=== PATIENT | female | born 1965 | race Caucasian/White ===

== ENCOUNTER → 2016-12-09 | Outpatient (CLI) | payer BC ==
[~2016-12-09] MED LIST: AZIT250T PO; HYCT PO; LEVO88TA PO; ONDA4TAB10 SL; OXYC-57 PO; TAMS0.4C38 PO
== END | disposition home or self-care (01) ==
LOC: C.PAPS 08:12
PROVIDERS: ATTEND Obstetrics & Gynecology
DX: Z01.419 Encounter for gynecological examination (general) (routine) without abnormal findings (principal)

== ENCOUNTER 2017-02-23 12:10 | Emergency (ER) | payer BC ==
[~2017-02-23] VITALS: Ht 149.9 cm; Wt 52.4 kg
[~2017-02-23 12:10] MED LIST changes: -LEVO88TA PO; -ONDA4TAB10 SL; -OXYC-57 PO; -TAMS0.4C38 PO
[2017-02-23 12:17] VITALS: TEMP 36.4; Ht 149.9 cm; Wt 52.4 kg
[2017-02-23] MEDS ORDERED: HYDROmorphone INJ 0.5 MG/0.5 ML SYR IV STA (12:32)
[2017-02-23] MEDS ORDERED: KETOROLAC TROMETHAMINE 30 MG/ML VIAL IV STA (12:32)
[2017-02-23] MEDS ORDERED: ONDANSETRON INJ 2 MG/ML 2 ML VIAL IV STA (12:32)
[2017-02-23] MEDS ORDERED: SODIUM CHLORIDE 0.9% 1000ML 1,000 ML IV STA (12:32)
--- NOTE | 2017-02-23 12:40 | EMERGENCY ROOM VISIT NOTE ---
History Report prepared by Zeenat: Gina Livingston Under the Supervision of: Dr. Ivan Redding M.D. First contact with patient: 12:23 Chief Complaint: FLANK PAIN Stated Complaint: PAIN IN RIGHT BACK, LIGHTHEADED, TINGLING HANDS History of Present Illness The patient is a 52 year old female who presents to the Emergency Room with complaints of waxing and waning right flank pain that began thirty minutes prior to arrival. She currently rates her discomfort as an 8/10 in severity and describes her discomfort as a pressure. The patient states that her pain started suddenly and denies doing any heavy lifting when her pain began. She states that due to the pain she became lightheaded and "trembly in the legs" so she rested in bed for a few minutes. The patient denies the pain radiating to her abdomen and denies ever having pain like this in the past. She notes a family history of kidney stones, but denies any personal history of kidney stones. The patient denies any history of a cholecystectomy or appendectomy. Source of History: patient Onset: 30 minutes prior to arrival Position: other (right flank) Symptom Intensity: 8/10 Quality: pressure Timing: waxes/wanes Note: Associated Symptoms: lightheaded, trembly in the legs Review of Systems See HPI for pertinent positives & negatives. A total of 10 systems reviewed and were otherwise negative. Past Medical & Surgical Medical Problems: (1) Pneumonia Family History Cancer Diabetes mellitus Heart disease Hypertension Kidney disease Kidney stones Social History Smoking Status: Never Smoker Smokeless Tobacco Use: No Alcohol Use: none Marital Status: Housing Status: lives with family Occupation Status: employed Current/Historical Medications Scheduled Levothyroxine Sodium (Synthroid), 88 MCG PO QPM Ondasetron Odt (Zofran Odt), 4 MG SL Q6H Tamsulosin Hcl (Flomax), 0.4 MG PO DAILY Scheduled PRN Oxycodone/Acetaminophen 5MG/325MG (Percocet 5MG/325MG), 1-2 TAB PO Q4H PRN for Pain Allergies Coded Allergies: Penicillins (Verified Allergy, Unknown, 02/23/17) Uncoded Allergies: CORN WHEAT ONION (Allergy, Unknown, 01/05/03) VOMITING DUE TO MEDS GIVEN WITH WISDOM TEETH EXTRACTION (Allergy, Unknown, 2/13/03) Physical Exam Vital Signs Date Time Temp Pulse Resp B/P Pulse Ox O2 Delivery O2 Flow Rate FiO2 02/23/17 14:13 78 16 109/69 100 02/23/17 13:37 78 16 109/69 100 Room Air 02/23/17 12:17 36.4 80 18 126/103 100 Room Air Physical Exam GENERAL: Patient is a healthy-appearing well-nourished HEAD: Normocephalic atraumatic EYES: Ocular movements intact pupils equal and react to light OROPHARYNX mucous membranes are moist no exudates present no erythema or edema present NECK: Supple no nuchal rigidity CHEST: Good equal expansion LUNGS: Clear and equal to auscultation CARDIAC: Normal S1 and S2 ABDOMEN: Soft nontender no guarding BACK: No CVA tenderness EXTREMITIES: No pain upon palpation normal muscle strength in all groups no clubbing cyanosis or edema NEURO: Patient is following commands is answering questions appropriately. Alert and oriented x3 Cranial Nerves 2-12 grossly intact Medical Decision & Procedures ER Provider Diagnostic Interpretation: CT results as stated below per my review and radiologist interpretation: ABDOMEN AND PELVIS CT WITHOUT CONTRAST CT DOSE: 514.83 mGy.cm HISTORY: Pain Pt c/o Rt sided flank pain TECHNIQUE: Multiaxial CT images of the abdomen and pelvis were performed without the use of intravenous and oral contrast according to the standard department stone protocol. COMPARISON STUDY: None. FINDINGS: The lung bases are clear. The unenhanced liver, gallbladder, spleen, pancreas, and adrenal glands are unremarkable. 3 mm obstructing calculus proximal right ureter. Mild right renal hydronephrosis. Left kidney is negative for hydronephrosis or calculus. Bowel pattern throughout is nonobstructive. There is a 2.5 cm left ovarian cyst. There is a 1 cm right ovarian cyst. Uterus is somewhat bulky suggesting the possibility of fibroid involvement. It is anteflexed in configuration. Bladder is midline. IMPRESSION: 1. 3 mm obstructing calculus proximal right ureter. 2. Mild right renal hydronephrosis. 3. Small bilateral ovarian cysts. 4. Fibroid-type uterus Electronically signed by: Aneesh Fermin M.D. 02/23/2017 1:10 PM Dictated Date/Time: 02/23/2017 1:06 PM Laboratory Results 02/23/17 12:43 Red Blood Count 4.57, Mean Corpuscular Volume 85.3, Mean Corpuscular Hemoglobin 29.5, Mean Corpuscular Hemoglobin Concent 34.6, Mean Platelet Volume 9.6, Neutrophils (%) (Auto) 55.9, Lymphocytes (%) (Auto) 31.7, Monocytes (%) (Auto) 8.2, Eosinophils (%) (Auto) 3.2, Basophils (%) (Auto) 0.7, Neutrophils # (Auto) 4.08, Lymphocytes # (Auto) 2.31, Monocytes # (Auto) 0.60, Eosinophils # (Auto) 0.23, Basophils # (Auto) 0.05 02/23/17 12:43 Test 02/23/17 11:25 02/23/17 12:43 Urine Color YELLOW Urine Appearance CLOUDY (CLEAR) Urine pH 6.5 (4.5-7.5) Urine Specific Mingus 1.017 (1.000-1.030) Urine Protein NEG (NEG) Urine Glucose (UA) NEG (NEG) Urine Ketones TRACE (NEG) Urine Occult Blood 3+ (NEG) Urine Nitrite NEG (NEG) Urine Bilirubin NEG (NEG) Urine Urobilinogen NEG (NEG) Urine Leukocyte Esterase MODERATE (NEG) Urine WBC (Auto) 1-5 /hpf (0-5) Urine RBC (Auto) >30 /hpf (0-4) Urine Hyaline Casts (Auto) 1-5 /lpf (0-5) Urine Epithelial Cells (Auto) >30 /lpf (0-5) Urine Bacteria (Auto) NEG (NEG) Urine Renal Epithelial Cells /lpf (0-5) White Blood Count 7.29 K/uL (4.8-10.8) Red Blood Count 4.57 M/uL (4.2-5.4) Hemoglobin 13.5 g/dL (12.0-16.0) Hematocrit 39.0 % (37-47) Mean Corpuscular Volume 85.3 fL (80-100) Mean Corpuscular Hemoglobin 29.5 pg (25-34) Mean Corpuscular Hemoglobin Concent 34.6 g/dl (32-36) Platelet Count 384 K/uL (130-400) Mean Platelet Volume 9.6 fL (7.4-10.4) Neutrophils (%) (Auto) 55.9 % Lymphocytes (%) (Auto) 31.7 % Monocytes (%) (Auto) 8.2 % Eosinophils (%) (Auto) 3.2 % Basophils (%) (Auto) 0.7 % Neutrophils # (Auto) 4.08 K/uL (1.4-6.5) Lymphocytes # (Auto) 2.31 K/uL (1.2-3.4) Monocytes # (Auto) 0.60 K/uL (0.11-0.59) Eosinophils # (Auto) 0.23 K/uL (0-0.5) Basophils # (Auto) 0.05 K/uL (0-0.2) RDW Standard Deviation 46.6 fL (36.4-46.3) RDW Coefficient of Variation 14.8 % (11.5-14.5) Immature Granulocyte % (Auto) 0.3 % Immature Granulocyte # (Auto) 0.02 K/uL (0.00-0.02) Anion Gap 16.0 mmol/L (3-11) Est Creatinine Clear Calc Drug Dose 58.7 ml/min Estimated GFR () 94.0 Estimated GFR (Non- 81.1 BUN/Creatinine Ratio 14.0 (10-20) Calcium Level 9.5 mg/dl (8.5-10.1) Total Bilirubin 1.0 mg/dl (0.2-1) Direct Bilirubin 0.2 mg/dl (0-0.2) Aspartate Amino Transf (AST/SGOT) 16 U/L (15-37) Alanine Aminotransferase (ALT/SGPT) 33 U/L (12-78) Alkaline Phosphatase 85 U/L (45-117) Total Protein 7.0 gm/dl (6.4-8.2) Albumin 3.9 gm/dl (3.4-5.0) Lipase 266 U/L (73-393) Labs reviewed by ED physician. Medications Administered Medications (Trade) Dose Ordered Sig/Lucia Route Start Time Stop Time Status Last Admin Dose Admin Sodium Chloride (Nss 1000ml) 1,000 ml @ 999 mls/hr Q1H1M STAT IV 02/23/17 12:32 02/23/17 13:32 DC 02/23/17 13:09 999 MLS/HR Ketorolac Tromethamine (Toradol Inj) 30 mg NOW STAT IV 02/23/17 12:32 02/23/17 12:35 DC 02/23/17 13:09 30 MG Hydromorphone HCl (Dilaudid Inj) 0.5 mg NOW STAT IV 02/23/17 12:32 02/23/17 12:35 DC 02/23/17 13:10 0.5 MG Ondansetron HCl (Zofran Inj) 4 mg NOW STAT IV 02/23/17 12:32 02/23/17 12:35 DC 02/23/17 13:09 4 MG Tamsulosin HCl (Flomax Cap) 0.4 mg NOW STAT PO 02/23/17 13:15 02/23/17 13:16 DC 02/23/17 13:37 0.4 MG ED Course 1229: Past medical records reviewed. The patient was evaluated in room C8. A complete history and physical examination was performed. 1232: Ordered Zofran Inj 4 mg IV, Dilaudid Inj 0.5 mg IV, Toradol Inj 30 mg IV, Sodium Chloride 1000 ml @ 999 mls/hr IV. 1315: Ordered Flomax Cap 0.4 mg PO. 1406: I reevaluated the patient and she is resting comfortably. I discussed the exam findings with her and I discussed the treatment plan. She verbalized complete understanding and agreement. She is ready to go home. Medical Decision Differential diagnosis: Etiologies such as appendicitis, diverticulitis, PUD, biliary pathology, UTI, pancreatitis, obstruction, mesenteric ischemia, aortic pathology, infections, inflammatory bowel disease, renal colic, as well as others were entertained. This is a 52-year-old female who presents emergency department complaining of right-sided flank pain. The patient has a stone on CAT scan which would explain her symptoms. An IV was established, the patient given normal saline bolus, Toradol, Dilaudid. Repeat examination revealed improvement patient's symptoms. The patient does not have a fever this has no evidence of infection in her urine. Based on these findings and believe that the patient can be safely discharged home. Patient and were in agreement with treatment plan. The patient was started on Flomax and told to take ibuprofen as well as Percocet for follow-up with urology. Patient was in agreement with the treatment plan. Impression Primary Impression: Kidney stone Additional Impression: Flank pain Scribe Attestation The scribe's documentation has been prepared under my direction and personally reviewed by me in its entirety. I confirm that the note above accurately reflects all work, treatment, procedures, and medical decision making performed by me. Departure Information Dispostion Home / Self-Care Prescriptions Tamsulosin Hcl (FLOMAX) 0.4 Mg Cap 0.4 MG PO DAILY for 10 Days, #10 CAP Prov: Ivan Redding MD 02/23/17 Oxycodone/Acetaminophen 5MG/325MG (PERCOCET 5MG/325MG) Tab 1-2 TAB PO Q4H Y for Pain, #14 TAB Prov: Ivan Redding MD 02/23/17 Ondasetron Odt (ZOFRAN ODT) 4 Mg Tab 4 MG SL Q6H for Nausea, #6 TAB Prov: Ivan Redding MD 02/23/17 Referrals No Doctor, Assigned (PCP) Dennis Joe M.D. Yingling, Christopher T. M.D. Forms HOME CARE DOCUMENTATION FORM, IMPORTANT VISIT INFORMATION, School Instructions, Work Instructions Patient Instructions Kidney Stones Expectant Therapy, Kidney Stones Prevent, Kidney Stones Risk, My [facility] Additional Instructions You received narcotic or benzodiazepene medication while in the emergency room today. Do not drive, operate heavy machinery, or drink alcohol under the influence of this medication. Take 600 mg Ibuprofen every 6 hours Take Percocet for breakthrough pain Culture results are usually available in approx 48 hours You have been examined and treated today on an emergency basis only. This is not a substitute for, or an effort to provide, complete comprehensive medical care. It is impossible to recognize and treat all injuries or illnesses in a single emergency department visit. It is therefore important that you follow up closely with Dr Joe. Call as soon as possible for an appointment. Thank you for your time and consideration. I look forward to speaking with you again soon. Please don't hesitate to call us if you have any questions. Problem Qualifiers
[2017-02-23 12:47] LABS: URINE APPEARANCE CLOUDY (CLEAR); URINE BILIRUBIN NEG (NEG); URINE COLOR YELLOW; URINE EPITHELIAL CELL AUTO >30 /lpf (0-5); URINE NITRITE NEG (NEG); URINE PH 6.5 (4.5-7.5); URINE SPECIFIC GRAVITY 1.017 (1.000-1.030); UROBILINOGEN NEG (NEG)
[2017-02-23 12:55] LABS: MANUAL MICROSCOPIC REQUIRED? NO
[2017-02-23 12:56] LABS: REVIEW REQ? YES
[2017-02-23 12:57] LABS: BASO % 0.7 %; BASO ABS # 0.05 K/uL (0-0.2); COMPLETE YES; EOS % 3.2 %; IG% 0.3 %; LYMPH % 31.7 %; LYMPH ABS # 2.31 K/uL (1.2-3.4); MEAN CELL VOLUME 85.3 fL (80-100); MEAN CORPUSCULAR HEMOGLOBIN 29.5 pg (25-34); MEAN CORPUSCULAR HGB CONC 34.6 g/dl (32-36); MEAN PLATELET VOLUME 9.6 fL (7.4-10.4); MONO % 8.2 %; NEUT % 55.9 %; PLATELET COUNT 384 K/uL (130-400); RED BLOOD COUNT 4.57 M/uL (4.2-5.4); WHITE BLOOD COUNT 7.29 K/uL (4.8-10.8)
[2017-02-23] MEDS ORDERED: LEVO88TA PO (13:06)
--- NOTE | 2017-02-23 13:11 | DIAGNOSTIC IMAGING REPORT ---
ABDOMEN AND PELVIS CT WITHOUT CONTRAST CT DOSE: 514.83 mGy.cm HISTORY: Pain Pt c/o Rt sided flank pain TECHNIQUE: Multiaxial CT images of the abdomen and pelvis were performed without the use of intravenous and oral contrast according to the standard department stone protocol. COMPARISON STUDY: None. FINDINGS: The lung bases are clear. The unenhanced liver, gallbladder, spleen, pancreas, and adrenal glands are unremarkable. 3 mm obstructing calculus proximal right ureter. Mild right renal hydronephrosis. Left kidney is negative for hydronephrosis or calculus. Bowel pattern throughout is nonobstructive. There is a 2.5 cm left ovarian cyst. There is a 1 cm right ovarian cyst. Uterus is somewhat bulky suggesting the possibility of fibroid involvement. It is anteflexed in configuration. Bladder is midline. IMPRESSION: 1. 3 mm obstructing calculus proximal right ureter. 2. Mild right renal hydronephrosis. 3. Small bilateral ovarian cysts. 4. Fibroid-type uterus Electronically signed by: Aneesh Fermin M.D. 02/23/2017 1:10 PM Dictated Date/Time: 02/23/2017 1:06 PM
[2017-02-23] MEDS ORDERED: TAMSULOSIN HCL 0.4 MG CAP PO STA (13:15)
[2017-02-23 13:20] LABS: CALCIUM 9.5 mg/dl (8.5-10.1); CREATININE 0.83 mg/dl (0.60-1.20); POTASSIUM 3.2 mmol/L (3.5-5.1)
[2017-02-23] MEDS ORDERED: TAMS0.4C38 PO (13:22)
[2017-02-23] MEDS ORDERED: OXYC-57 PO (13:22)
[2017-02-23] MEDS ORDERED: ONDA4TAB10 SL (13:22)
[2017-02-23 14:13] VITALS: BP 109/69; PULSE 78; O2SAT 100
== END 2017-02-23 14:13 | disposition home or self-care (01) ==
LOC: C.EDB 12:13 → C.EDC 14:13
DX: N20.0 Calculus of kidney (principal); R10.30 Lower abdominal pain, unspecified; Z79.899 Other long term (current) drug therapy; Z88.0 Allergy status to penicillin; Z80.9 Family history of malignant neoplasm, unspecified; Z83.3 Family history of diabetes mellitus; Z82.49 Family history of ischemic heart disease and other diseases of the circulatory system; Z84.1 Family history of disorders of kidney and ureter

== ENCOUNTER → 2017-04-09 | Outpatient (CLI) | payer BC ==
[~2017-04-09] MED LIST changes: -AZIT250T PO; -HYCT PO; +LEVO88TA PO; +ONDA4TAB10 SL; +OXYC-57 PO
--- NOTE | 2017-04-14 11:16 | MAMMOGRAPHY REPORT ---
UNILATERAL LEFT DIGITAL DIAGNOSTIC MAMMOGRAM TOMOSYNTHESIS WITH CAD AND TARGETED LEFT ULTRASOUND: CLINICAL HISTORY: 6 Month Follow-up Left. TECHNIQUE: Breast tomosynthesis in addition to standard 2D mammography was performed. Current study was also evaluated with a Computer Aided Detection (CAD) system. Left CC and MLO 2-D and tomosynth esis images were obtained. COMPARISON: Comparison is made to exams dated: 10/07/2016 mammogram, 10/07/2016 ultrasound, 09/23/20 16 mammogram, 09/19/2015 mammogram, 03/09/2015 mammogram, and 03/09/2015 ultrasound - [facility]. BREAST COMPOSITION: The tissue of the left breast is heterogeneously dense, which may obscure small masses. FINDINGS: The previously seen nodular asymmetries within the left breast on the MLO view are less p rominent and have the appearance of normal fibroglandular tissue on the current exam. The previousl y seen circumscribed masses on the cc view are stable, including a circumscribed round 6 mm mass wit hin the left 12:00 breast (slice 48/73) and an oval circumscribed 6 mm mass within the left inferior breast at approximately 6:00 (slice 3/73) are unchanged. No new or suspicious masses or clusters o f microcalcifications are noted within the left breast mammographically. Targeted ultrasound was performed of the area of the previously seen left breast masses. In the lef t breast at 12:00, 2 cm from the nipple, there is an oval circumscribed anechoic 5 x 5 mm mass. Thi s is unchanged compared to the prior ultrasound exam (previously labeled left 11:00, 2 cm from the n ipple) and is consistent with a benign simple cyst. This is felt to correspond with one of the mamm ographic masses is stable mammographically. In the left breast at 12:30, 4 cm from the nipple, ther e is an oval anechoic benign simple cyst which measures 4 x 4 mm. In the left breast at 3:00, 4 cm from the nipple, there is an oval anechoic circumscribed mass with a thin internal septation, which measures 7 x 3 x 6 mm. This is not significantly changed and is consistent with a benign cyst. In the left breast at 6:00, 3 cm from the nipple, there is a round nearly anechoic circumscribed mass w hich measures 2 x 2 mm, unchanged and consistent with a benign cyst. In the left breast at 6:00, 2 cm from the nipple, there is a superficial mass which measures 4 x 3 x 4 mm, which is anechoic and c ontains multiple thin internal septations, consistent with a benign cyst cluster. This is felt to c orrespond with one of the mammographic masses which is stable compared to the 09/23/2016 exam. No escobar spicious solid masses were evident. IMPRESSION: ACR BI-RADS CATEGORY 2: BENIGN, TARGETED ULTRASOUND ACR BI-RADS CATEGORY 2: BENIGN Multiple small cysts seen within the left breast, which are stable compared to the September 2016 exa m and are considered benign. There is no mammographic or targeted sonographic evidence of malignanc y. Return to annual mammogram screening schedule is recommended, due September 2017. The patient has been verbally notified of the results. Approximately 10% of breast cancers are not detected with mammography. A negative mammographic repor t should not delay biopsy if a clinically suggestive mass is present. Roseanne Chahal M.D. ah/:04/09/2017 10:39:30 Director Immunology: [facility])(Barb), [facility] letter sent: Normal 1/2 BI-RADS Code: ACR BI-RADS Category 2: Benign Ultrasound BI-RADS: ACR BI-RADS Category 2: Benign
== END | disposition home or self-care (01) ==
LOC: C.MAMM 09:24
PROVIDERS: ATTEND Obstetrics & Gynecology
DX: N60.02 Solitary cyst of left breast (principal)

== ENCOUNTER → 2017-07-07 | Outpatient (CLI) | payer BC ==
[2017-07-07 11:04] LABS: BLOOD UREA NITROGEN 18 mg/dl (7-18); BUN/CREATININE RATIO 24.5 (10-20); CALCIUM 9.3 mg/dl (8.5-10.1); CARBON DIOXIDE 28 mmol/L (21-32); CHLORIDE 106 mmol/L (98-107); CREATININE 0.73 mg/dl (0.60-1.20); GLUCOSE 85 mg/dl (70-99); POTASSIUM 4.2 mmol/L (3.5-5.1); SODIUM 140 mmol/L (136-145)
[2017-07-07 11:15] LABS: CHOLESTEROL 225 mg/dl (0-200); CHOLESTEROL/HDL RATIO 2.6; HDL CHOLESTEROL 85 mg/dl; LDL CHOLESTEROL CALCULATED 129 mg/dl; THYROID STIMULATING HORMONE 0.437 uIu/ml (0.300-4.500); TRIGLYCERIDES 54 mg/dl (0-150); VERY LOW DENSITY LIPOPROT CALC 11 mg/dl
== END | disposition home or self-care (01) ==
LOC: C.LABBC 07:15
PROVIDERS: ATTEND Internal Medicine
DX: Z13.220 Encounter for screening for lipoid disorders (principal); N20.0 Calculus of kidney; E03.9 Hypothyroidism, unspecified

== ENCOUNTER → 2017-10-08 | Outpatient (CLI) | payer BC ==
[~2017-10-08] MED LIST changes: -ONDA4TAB10 SL; -OXYC-57 PO
--- NOTE | 2017-10-08 15:31 | MAMMOGRAPHY REPORT ---
BILATERAL DIGITAL SCREENING MAMMOGRAM TOMOSYNTHESIS WITH CAD: 10/08/2017 CLINICAL HISTORY: Routine screening. TECHNIQUE: Breast tomosynthesis in addition to standard 2D mammography was performed. Current study was also evaluated with a Computer Aided Detection (CAD) system. COMPARISON: Comparison is made to exams dated: 04/09/2017 ultrasound, 04/09/2017 mammogram, 10/07/2016 mammogram, 09/23/2016 mammogram, 09/19/2015 mammogram, and 08/03/2014 mammogram - [facility]. BREAST COMPOSITION: The tissue of both breasts is heterogeneously dense, which may obscure small mas ses. FINDINGS: No suspicious masses, calcifications, or areas of architectural distortion are noted in ei ther breast. There has been no significant interval change compared to prior exams. IMPRESSION: ACR BI-RADS CATEGORY 1: NEGATIVE There is no mammographic evidence of malignancy. A 1 year screening mammogram is recommended. The pa tient will receive written notification of the results. Approximately 10% of breast cancers are not detected with mammography. A negative mammographic report should not delay biopsy if a clinically suggestive mass is present. Rsoeanne Chahal M.D. /:10/08/2017 14:47:52 Magneto Repairer: Vu GARCIA(Ale)(M), [facility] letter sent: Normal 1/2 BI-RADS Code: ACR BI-RADS Category 1: Negative
== END | disposition home or self-care (01) ==
LOC: C.MAMM 09:42
PROVIDERS: ATTEND Obstetrics & Gynecology
DX: Z12.31 Encounter for screening mammogram for malignant neoplasm of breast (principal)

== ENCOUNTER → 2018-06-28 | Outpatient (CLI) | payer OTHER ==
[~2018-06-28] MED LIST changes: +MULT-506 PO
[2018-06-28 11:28] LABS: BLOOD UREA NITROGEN 22 mg/dl (7-18); CALCIUM 8.8 mg/dl (8.5-10.1); CARBON DIOXIDE 27 mmol/L (21-32); CHOLESTEROL 222 mg/dl (0-200); CREATININE 0.74 mg/dl (0.60-1.20); GLUCOSE 79 mg/dl (70-99); LDL CHOLESTEROL CALCULATED 144 mg/dl; POTASSIUM 3.8 mmol/L (3.5-5.1); SODIUM 141 mmol/L (136-145)
== END | disposition home or self-care (01) ==
LOC: C.LABBC 07:12
PROVIDERS: ATTEND Internal Medicine
DX: Z13.220 Encounter for screening for lipoid disorders (principal); E03.9 Hypothyroidism, unspecified; N20.0 Calculus of kidney